=== PATIENT | male | born 1945 | race Caucasian/White ===

== ENCOUNTER 2025-03-26 12:43 | Inpatient (IN) | payer MEDICARE, OTHER ==
[~2025-03-26] VITALS: Ht 185.4 cm; Wt 66.3 kg
[2025-03-26 13:32] LABS: BASOPHILS # (AUTO) 0.1 K/UL (0.0-0.2); BASOPHILS % (AUTO) 1.2 % (0.0-2.0); EOSINOPHILS % (AUTO) 0.9 % (0.0-7.0); HEMATOCRIT 27.8 % (36.7-47.1); HEMOGLOBIN 9.3 g/dL (12.5-16.3); LYMPHOCYTES # (AUTO) 0.9 K/uL (0.8-4.8); LYMPHOCYTES % (AUTO) 17.9 % (20.5-51.5); MEAN CORPUSCULAR HEMOGLOBIN 33.1 uug (23.8-33.4); MEAN CORPUSCULAR HGB CONC 34 g/dL (32.5-36.3); MEAN CORPUSCULAR VOLUME 98.6 fL (73.0-96.2); MONOCYTES # (AUTO) 0.7 K/uL (0.1-1.30); MONOCYTES % (AUTO) 13.1 % (0.0-11.0); NEUTROPHILS # (AUTO) 3.3 K/uL (1.8-8.9); NEUTROPHILS % (AUTO) 66.9 % (38.5-71.5); PLATELET COUNT (AUTO) 372 K/uL (152-348); RED BLOOD CELL COUNT(AUTO) 2.82 MIL/uL (4.06-5.63); WHITE BLOOD COUNT (AUTO) 4.9 K/uL (3.6-10.2)
[2025-03-26 13:38] LABS: CALCIUM 8.6 mg/dL (8.5-10.1); CARBON DIOXIDE 30 mmol/L (21-32); CHLORIDE 102 mmol/L (98-107); CREATININE 0.7 mg/dL (0.6-1.3); GLUCOSE 100 mg/dL (74-106); POTASSIUM 4.3 mmol/L (3.5-5.1); SODIUM SERUM 139 mmol/L (136-145); UREA NITROGEN, BLOOD 14 mg/dL (7-18)
[2025-03-26 13:42] LABS: DIFFERENTIAL COMMENT 1
[2025-03-26 13:44] LABS: ALANINE AMINOTRANSFERASE 15 U/L (16-63); ALBUMIN 3.5 g/dL (3.4-5.0); ALKALINE PHOSPHATASE 81 U/L (50-136); ASPARTATE AMINOTRANSFERASE 12 U/L (15-37); BILIRUBIN,DIRECT 0.4 mg/dL (0.0-0.2); BILIRUBIN,TOTAL 1.2 mg/dL (0.2-1.0); ETHANOL < 3 MG/DL (0-10); TOTAL PROTEIN, SERUM 6.1 g/dL (6.4-8.2)
[2025-03-26] MEDS ORDERED: RISP1TAB97 PO (13:53)
[2025-03-26] MEDS ORDERED: HYDR50TA62 PO (13:53)
[2025-03-26] MEDS ORDERED: ATOR20TA PO (13:53)
[2025-03-26] MEDS ORDERED: ESCI5TAB PO (13:53)
[2025-03-26] MEDS ORDERED: FERR325T24 PO (13:53)
[2025-03-26] MEDS ORDERED: BUPR100T6 PO (13:53)
[2025-03-26] MEDS ORDERED: CHOL100062 PO (13:53)
[2025-03-26] MEDS ORDERED: DIVA125T32 PO (13:53)
[2025-03-26] MEDS ORDERED: FOLI1TAB94 PO (13:53)
[2025-03-26] MEDS ORDERED: SENN8.6T19 PO (13:53)
[2025-03-26] MEDS ORDERED: TRAZ-182 PO (13:53)
[2025-03-26] MEDS ORDERED: MULT-213 PO (13:53)
[2025-03-26 13:54] LABS: *CLARITY,URINE SLIGHTLY CLOUDY (CLEAR); *COLOR,URINE AMBER (YELLOW); *KETONES,URINE TRACE (NEGATIVE); *PROTEIN,URINE 1+ (NEGATIVE); LEUKOCYTE ESTERASE ,URINE 1+ (NEGATIVE); NITRITE, URINE POSITIVE (NEGATIVE); PH,URINE 5.5 (5.0-8.0); UGLUCOSE NEGATIVE (NEGATIVE)
[2025-03-26] MEDS ORDERED: MAGNESIUM HYDROXIDE 30 ML LIQUID UDC PO PRN (14:00)
[2025-03-26] MEDS ORDERED: ONDANSETRON 4 MG/2 ML VIAL IV PRN (14:00)
[2025-03-26 14:01] LABS: *BILIRUBIN,URIN 1+ (NEGATIVE); *BLOOD, URINE TRACE (NEGATIVE)
[2025-03-26 14:14] LABS: *AMPHETAMINE, URINE NEGATIVE (NEGATIVE); *BARBITURATE, URINE NEGATIVE (NEGATIVE); *BENZODIAZEPINE, URINE NEGATIVE (NEGATIVE); *CANNABINOID, URINE NEGATIVE (NEGATIVE); *COCCAINE, URINE NEGATIVE (NEGATIVE); *OPIATE, URINE NEGATIVE (NEGATIVE); *PHENCYCLIDINE SCREEN,URINE NEGATIVE (NEGATIVE); FENTANYL, URINE NEGATIVE (NEGATIVE)
[2025-03-26 14:16] LABS: BACTERIA,URINE MANY /HPF (NONE SEEN); SQUAMOUS EPITHELIAL CELL,UR FEW /HPF (NONE SEEN); WBC,URINE 20-50 /HPF (0-3)
[2025-03-26] MEDS ORDERED: GUAI5SYR PO (16:21)
[2025-03-26] MEDS: DIVALPROEX 125 MG TABLET.DR PO SCH (16:55)
[2025-03-26 19:30] VITALS: BP 105/61; TEMP 97.6; O2SAT 94
[2025-03-26] MEDS: SENNOSIDES 1 TABLET PO SCH (20:32)
[2025-03-26] MEDS: IV NS 1000 ML 1,000 ML IV PRN (20:32)
[2025-03-26] MEDS: TRAZODONE 50 MG TABLET PO SCH (20:32)
[2025-03-26] MEDS ORDERED: CEFTRIAXONE /D5W 50ML IVPB **ER PYXIS IV ONE (20:43)
[2025-03-26] MEDS: CEFTRIAXONE 1 G in IV DEXTROSE 5% 50 ML IV SCH (21:09)
[2025-03-27 05:40] LABS: BASOPHILS # (AUTO) 0.2 K/UL (0.0-0.2); EOSINOPHILS # (AUTO) 0.1 K/uL (0.0-0.7); EOSINOPHILS % (AUTO) 2.9 % (0.0-7.0); HEMOGLOBIN 8.9 g/dL (12.5-16.3); LYMPHOCYTES # (AUTO) 1.3 K/uL (0.8-4.8); LYMPHOCYTES % (AUTO) 25.7 % (20.5-51.5); MEAN CORPUSCULAR HEMOGLOBIN 33.7 uug (23.8-33.4); MEAN CORPUSCULAR HGB CONC 34 g/dL (32.5-36.3); MEAN CORPUSCULAR VOLUME 98.4 fL (73.0-96.2); MONOCYTES # (AUTO) 0.8 K/uL (0.1-1.30); MONOCYTES % (AUTO) 15.6 % (0.0-11.0); NEUTROPHILS # (AUTO) 2.7 K/uL (1.8-8.9); NEUTROPHILS % (AUTO) 52.8 % (38.5-71.5); PLATELET COUNT (AUTO) 330 K/uL (152-348); RED BLOOD CELL COUNT(AUTO) 2.64 MIL/uL (4.06-5.63); RED CELL DISTRIBUTION WIDTH 20.1 % (12.1-16.2)
[2025-03-27 05:53] VITALS: BP 115/56; TEMP 97.9; O2SAT 98
[2025-03-27 05:53] LABS: DIFFERENTIAL COMMENT 1
[2025-03-27 05:54] LABS: NEUTROPHILS % (MANUAL) 0 % (42-75)
[2025-03-27 06:03] LABS: ALANINE AMINOTRANSFERASE 13 U/L (16-63); ALBUMIN 3.1 g/dL (3.4-5.0); ALKALINE PHOSPHATASE 87 U/L (50-136); ASPARTATE AMINOTRANSFERASE 15 U/L (15-37); BILIRUBIN,TOTAL 0.8 mg/dL (0.2-1.0); CALCIUM 8.5 mg/dL (8.5-10.1); CARBON DIOXIDE 28 mmol/L (21-32); CHLORIDE 104 mmol/L (98-107); CREATININE 0.8 mg/dL (0.6-1.3); GLUCOSE 73 mg/dL (74-106); MAGNESIUM 1.9 mg/dL (1.8-2.4); PHOSPHOROUS 3.5 mg/dL (2.5-4.9); POTASSIUM 4.1 mmol/L (3.5-5.1); SODIUM SERUM 136 mmol/L (136-145); TOTAL PROTEIN, SERUM 5.7 g/dL (6.4-8.2); UREA NITROGEN, BLOOD 12 mg/dL (7-18)
[2025-03-27] MEDS: FOLIC ACID 1 MG TABLET PO SCH (10:18)
[2025-03-27] MEDS: REMEDY ESSENTIAL ZINC PASTE 113 GM TP PRN (10:18)
[2025-03-27] MEDS: ESCITALOPRAM OXALATE 10 MG TABLET PO SCH (10:19)
[2025-03-27] MEDS: MULTIVIT, IRON, MIN NO. 8, FA TABLET PO SCH (10:19)
[2025-03-27] MEDS: CHOLECALCIFEROL 1,000 UNIT TABLET PO SCH (10:19)
[2025-03-27] MEDS: buPROPion SR 100 MG TABLET.SA PO SCH (10:20)
[2025-03-27] MEDS: ATORVASTATIN 20 MG TABLET PO SCH (10:20)
[2025-03-27 11:52] VITALS: BP 132/66; TEMP 98.5; O2SAT 97
[2025-03-27 16:00] VITALS: BP 116/20; TEMP 97; O2SAT 98
[2025-03-27 20:00] VITALS: BP 119/60; TEMP 98.1; O2SAT 98
[2025-03-28 06:49] VITALS: BP 142/68; TEMP 97.5; O2SAT 97
[2025-03-28] MEDS: FERROUS SULFATE 325 MG TABEC PO SCH (08:06)
[2025-03-28 11:48] VITALS: BP 125/69; TEMP 98.4; O2SAT 96
[2025-03-28 14:25] VITALS: BP 120/68; TEMP 98; O2SAT 95
[2025-03-28 19:30] VITALS: BP 146/69; TEMP 99.1; O2SAT 97
[2025-03-28 20:00] VITALS: BP 146/69; TEMP 99.1; O2SAT 97
[2025-03-28] MEDS: ACETAMINOPHEN 325 MG TABLET PO PRN (21:06)
[2025-03-29 05:21] VITALS: BP 107/47; TEMP 97.5; O2SAT 99
[2025-03-29 06:50] LABS: BASOPHILS # (AUTO) 0.1 K/UL (0.0-0.2); BASOPHILS % (AUTO) 0.9 % (0.0-2.0); EOSINOPHILS # (AUTO) 0.2 K/uL (0.0-0.7); EOSINOPHILS % (AUTO) 1.9 % (0.0-7.0); HEMATOCRIT 26.1 % (36.7-47.1); HEMOGLOBIN 8.9 g/dL (12.5-16.3); LYMPHOCYTES # (AUTO) 1.5 K/uL (0.8-4.8); LYMPHOCYTES % (AUTO) 16.8 % (20.5-51.5); MEAN CORPUSCULAR HEMOGLOBIN 33.6 uug (23.8-33.4); MEAN CORPUSCULAR HGB CONC 34 g/dL (32.5-36.3); MONOCYTES # (AUTO) 1.3 K/uL (0.1-1.30); MONOCYTES % (AUTO) 14.4 % (0.0-11.0); NEUTROPHILS # (AUTO) 5.7 K/uL (1.8-8.9); PLATELET COUNT (AUTO) 326 K/uL (152-348); RED BLOOD CELL COUNT(AUTO) 2.66 MIL/uL (4.06-5.63); WHITE BLOOD COUNT (AUTO) 8.7 K/uL (3.6-10.2)
[2025-03-29 07:01] LABS: CARBON DIOXIDE 29 mmol/L (21-32); CHLORIDE 104 mmol/L (98-107); CREATININE 0.7 mg/dL (0.6-1.3); GLUCOSE 83 mg/dL (74-106); SODIUM SERUM 141 mmol/L (136-145); UREA NITROGEN, BLOOD 9 mg/dL (7-18)
[2025-03-29 07:09] LABS: DIFFERENTIAL COMMENT 1
[2025-03-29 11:17] VITALS: BP 107/59; TEMP 98.4; O2SAT 96
[2025-03-29] MEDS ORDERED: SULF1TAB48 PO (13:04)
[2025-03-29] MEDS ORDERED: ASCO500C18 PO (13:32)
[2025-03-29 15:15] VITALS: BP 136/63; TEMP 97.6; O2SAT 72
[2025-03-29 15:59] VITALS: BP 136/63; TEMP 98.3; O2SAT 95
== END 2025-03-29 17:10 | DRG 689 ==
LOC: ER 12:43 → MEDSURG3 15:35
PROVIDERS: ADMIT Nurse Practitioner Acute Care; ATTEND Nurse Practitioner Acute Care
DX: N39.0 Urinary tract infection, site not specified (principal); G92.8 Other toxic encephalopathy; F03.911 Unspecified dementia, unspecified severity, with agitation; R53.1 Weakness; R26.89 Other abnormalities of gait and mobility; D63.8 Anemia in other chronic diseases classified elsewhere; J44.9 Chronic obstructive pulmonary disease, unspecified; E78.5 Hyperlipidemia, unspecified; E86.0 Dehydration; R74.01 Elevation of levels of liver transaminase levels; I10 Essential (primary) hypertension; Z66 Do not resuscitate; Z88.0 Allergy status to penicillin; Z79.899 Other long term (current) drug therapy
CPT/HCPCS: 36415; 80164; 83735; 84100; 85025; 87077; 87086; A4606; A4663; A6213; C1758; G0378; G0480; J0696; J7040